=== PATIENT | male | born 1945 ===

== ENCOUNTER 2018-03-08 10:42 | Day surgery (SDC) | payer MEDICARE ==
[2018-03-08] MEDS ORDERED: Lactated Ringer's 500 ML IV ONE (11:02)
[2018-03-08] MEDS ORDERED: Propofol 10 mg/ml Inj (20 ML) ONE (12:12)
[2018-03-08 12:44] VITALS: TEMP 97
[2018-03-08 12:50] VITALS: BP 102/65; PULSE 58; RESP 14; O2SAT 100
== END 2018-03-08 13:10 | disposition home or self-care (01) ==
LOC: H.ENDO 10:42
PROVIDERS: ATTEND Internal Medicine Gastroenterology
DX: Z86.010 Personal history of colon polyps (principal); D12.3 Benign neoplasm of transverse colon
CPT/HCPCS: 45380; 88305; J2001; J2704; J7120